=== PATIENT | female | born 1970 | race Two or more races ===

== ENCOUNTER 2017-03-06 16:52 | Emergency (ER) | payer MEDICAID, OTHER ==
[~2017-03-06] VITALS: Ht 167.6 cm; Wt 63.5 kg
[2017-03-06] MEDS ORDERED: LORazepam 2MG/ML-1ML VIAL IV ONE (19:00)
[2017-03-06 19:33] VITALS: BP 136/93
[2017-03-06] MEDS ORDERED: LORazepam 0.5 MG TAB PO ONE (19:45)
== END 2017-03-06 21:11 | disposition home or self-care (01) ==
LOC: EDBD → ER 16:52
DX: F41.9 Anxiety disorder, unspecified (principal); E07.9 Disorder of thyroid, unspecified
CPT/HCPCS: 93005; 94761; 99284; J2060

== ENCOUNTER 2017-03-06 21:19 | Observation (INO) | payer MEDICAID ==
[~2017-03-06] VITALS: Ht 154.9 cm; Wt 65.8 kg
[2017-03-06 23:05] LABS: Basophils # (auto) 0.1 uL; Basophils % (auto) 1.7 % (0.0-2.0); Eosinophils # (auto) 0 uL; Eosinophils % (auto) 0.3 % (0.0-7.0); Hemoglobin 13.6 g/dL (12.2-16.2); Lymphocytes # (auto) 1.6 uL; Lymphocytes % (auto) 21.4 % (10.0-50.0); Mean Corpuscular Hgb Conc. 32.5 g/dL (32.0-36.0); Mean Corpuscular Volume 86.1 fL (80.0-100.0); Mean Platelet Volume 9.5 fL (7.4-10.4); Monocytes # (auto) 0.4 uL; Monocytes % (auto) 5.2 % (0.0-12.0); Neutrophils # (auto) 5.4 uL; Neutrophils % (auto) 71.4 % (37.0-80.0); Platelet Count (auto) 88 10^3/uL (140-450); Red Cell Distribution Width 16.1 % (11.6-16.0); White Blood Cell 7.5 10^3/uL (4.4-10.8)
[2017-03-06 23:40] LABS: Albumin 4.1 g/dL (3.4-5.0); Anion Gap 10 (5-15); Aspartate Aminotransferase 45 U/L (15-37); BUN/Creatinine Ratio 14.7; Blood Urea Nitrogen 10 mg/dL (7-18); Calcium 8.6 mg/dL (8.5-10.1); Carbon Dioxide 21 mmol/L (21-32); Chloride 104 mmol/L (98-107); GFR African American 121 mL/min; GFR Non-African American 100 mL/min; Glucose 110 mg/dL (74-106); Magnesium 2.4 mg/dL (1.6-2.6); Potassium 5.3 mmol/L (3.5-5.1); Sodium 135 mmol/L (136-145)
[2017-03-06 23:45] LABS: Alkaline Phosphatase 94 U/L (45-117); Bilirubin, Total 1.5 mg/dL (0.2-1.0); Total Protein 8.5 g/dL (6.4-8.2)
[2017-03-07] MEDS ORDERED: ALBUTEROL SULF 2.5 MG/0.5ML(0.5%) NEB SOLN NEB STA (00:07)
[2017-03-07] MEDS ORDERED: SODIUM CHLORIDE 0.9% 1,000 ML IV ONE (00:09)
[2017-03-07] MEDS ORDERED: CALCIUM GLUC 4.65 MEQ/10ML 4.65 MEQ in SODIUM CHL 0.9% 50 ML IV ONE (00:15)
[2017-03-07] MEDS ORDERED: InsuLIN REG 1unit/0.01ml Soln (100units/ml) IV ONE (00:15)
[2017-03-07] MEDS ORDERED: SODIUM POLYSTYRENE SULF 15GM/60ML SUSP PO ONE (00:15)
[2017-03-07] MEDS ORDERED: DEXTROSE (50%) 50ML SYRG IV ONE (00:15)
[2017-03-07] MEDS ORDERED: SODIUM BICARBONATE 8.4% INJ 50ML SYRINGE IV ONE (00:15)
[2017-03-07] MEDS ORDERED: LORazepam 2MG/ML-1ML VIAL IV ONE (00:30)
[2017-03-07] MEDS ORDERED: CALCIUM GLUC 4.65 MEQ/10ML IV ONE (00:33)
[2017-03-07 04:22] VITALS: BP 112/62
== END 2017-03-07 04:56 | disposition home or self-care (01) | DRG 756 ==
LOC: EDBD 21:21 → ER 21:21 → OVERFLOW 03-07 00:29 → ER 03-07 04:56
PROVIDERS: ADMIT Emergency Medicine; ATTEND Emergency Medicine
DX: F41.9 Anxiety disorder, unspecified (principal); E87.5 Hyperkalemia; K80.20 Calculus of gallbladder without cholecystitis without obstruction; Z82.49 Family history of ischemic heart disease and other diseases of the circulatory system; Z83.3 Family history of diabetes mellitus
CPT/HCPCS: 36415; 70450; 71010; 76705; 80053; 82962; 83735; 84132; 84443; 84484; 85025; 94644; 96365; 96375; 99285; G0378; J0610; J1815; J2060; J7042

== ENCOUNTER 2017-08-05 23:57 | Emergency (ER) | payer MEDICAID ==
[~2017-08-05] VITALS: Ht 165.1 cm; Wt 63.5 kg
[2017-08-05] MEDS ORDERED: HALOPERIDOL LACTATE 5 MG/ML INJ VIAL ONE (23:58)
[2017-08-05] MEDS ORDERED: LORazepam 2MG/ML-1ML VIAL ONE (23:58)
[2017-08-05] MEDS ORDERED: diphenhdrAMINE HCL 50 MG/1 ML VL ONE (23:58)
[2017-08-06] MEDS ORDERED: diphenhdrAMINE HCL 50 MG/1 ML VL IV ONE (00:30)
[2017-08-06] MEDS ORDERED: HALOPERIDOL LACTATE 5 MG/ML INJ VIAL IM ONE (00:30)
[2017-08-06] MEDS ORDERED: LORazepam 2MG/ML-1ML VIAL IV ONE (00:30)
[2017-08-06 00:46] LABS: Urine Bilirubin Negative (Negative); Urine Blood 1+ /uL (Negative); Urine Color Yellow (Yellow); Urine Glucose Normal (Normal); Urine Hyaline Cast FEW /lpf (0 - 2); Urine Ketone 3+ (Negative); Urine Mucus FEW (None Seen); Urine Nitrite Negative (Negative); Urine RBC 1 /hpf (0 - 4)
[2017-08-06 00:55] LABS: Basophils # (auto) 0 uL; Basophils % (auto) 0.3 % (0.0-2.0); Eosinophils # (auto) 0 uL; Eosinophils % (auto) 0.1 % (0.0-7.0); Hematocrit 36.4 % (36.0-46.0); Hemoglobin 12.1 g/dL (12.2-16.2); Lymphocytes % (auto) 8.3 % (10.0-50.0); Mean Corpuscular Hemoglobin 28.4 pg (28.0-32.0); Mean Corpuscular Hgb Conc. 33.2 g/dL (32.0-36.0); Mean Corpuscular Volume 85.6 fL (80.0-100.0); Mean Platelet Volume 8.3 fL (6.9-10.8); Monocytes % (auto) 8.1 % (0.0-12.0); Neutrophils # (auto) 9.9 uL; Neutrophils % (auto) 83.2 % (37.0-80.0); Nucleated Red Blood Cells % 0.1 %; Platelet Count (auto) 277 10^3/uL (140-450); Red Cell Distribution Width 15.5 % (11.8-14.3); White Blood Cell 11.8 10^3/uL (4.4-10.8)
[2017-08-06 01:16] LABS: BUN/Creatinine Ratio 16.3; Calcium 8.6 mg/dL (8.5-10.1); Potassium 3.1 mmol/L (3.5-5.1)
[2017-08-06 01:19] LABS: Bilirubin, Total 1.1 mg/dL (0.2-1.0); Total Protein 7.9 g/dL (6.4-8.2)
[2017-08-06 01:21] LABS: Lactic Acid w/Reflex 3.8 mmol/L (0.4-2.0)
[2017-08-06 01:27] LABS: REFLEX LACTIC ACID YES OR NO YES
[2017-08-06] MEDS ORDERED: SODIUM CHLORIDE 0.9% 1,000 ML IV ONE (03:00)
[2017-08-06 05:20] VITALS: BP 96/55
== END 2017-08-06 05:52 | disposition home or self-care (01) ==
LOC: ER 08-06 00:02
DX: G92 Toxic encephalopathy (principal); R41.82 Altered mental status, unspecified; F19.10 Other psychoactive substance abuse, uncomplicated; E07.9 Disorder of thyroid, unspecified
CPT/HCPCS: 36415; 80053; 80307; 81001; 81025; 83605; 85025; 93005; 96361; 96372; 96374; 96375; 99285; J1200; J1630; J2060; J7030

== ENCOUNTER 2017-12-19 10:48 | Emergency (ER) | payer MEDICAID ==
[~2017-12-19] VITALS: Ht 157.5 cm; Wt 63.0 kg
[2017-12-19 14:55] VITALS: BP 135/76
[2017-12-19] MEDS ORDERED: TETRACAINE HCL 0.5% OPTH(EYE) SOLN 4ML EACHEYE ONE (15:00)
== END 2017-12-19 15:58 | disposition home or self-care (01) ==
LOC: ER 10:48
DX: S05.02XA Injury of conjunctiva and corneal abrasion without foreign body, left eye, initial encounter (principal); S05.01XA Injury of conjunctiva and corneal abrasion without foreign body, right eye, initial encounter; E07.9 Disorder of thyroid, unspecified; X58.XXXA Exposure to other specified factors, initial encounter; Y93.89 Activity, other specified; Y92.89 Other specified places as the place of occurrence of the external cause; Y99.8 Other external cause status

== ENCOUNTER 2019-05-14 11:56 | Emergency (ER) | payer MEDICAID ==
[~2019-05-14] VITALS: Ht 157.5 cm; Wt 65.8 kg
[2019-05-14 13:08] LABS: Basophils # (auto) 0.1 uL; Basophils % (auto) 0.9 % (0.0-2.0); Eosinophils # (auto) 0.1 uL; Hematocrit 37.9 % (36.0-46.0); Hemoglobin 12.7 g/dL (12.2-16.2); Lymphocytes # (auto) 1.7 uL; Lymphocytes % (auto) 27.5 % (10.0-50.0); Mean Corpuscular Hemoglobin 29.8 pg (28.0-32.0); Mean Corpuscular Hgb Conc. 33.5 g/dL (32.0-36.0); Monocytes # (auto) 0.5 uL; Monocytes % (auto) 8.7 % (0.0-12.0); Neutrophils # (auto) 3.7 uL; Neutrophils % (auto) 61.9 % (37.0-80.0); Platelet Count (auto) 319 10^3/uL (140-450); Red Blood Cells 4.26 10^6/uL (4.0-5.20); Red Cell Distribution Width 14.6 % (11.8-14.3); White Blood Cell 6.1 10^3/uL (4.4-10.8)
[2019-05-14 13:29] LABS: Alanine Aminotransferase 22 U/L (13-56); Albumin 3.7 g/dL (3.4-5.0); Anion Gap 9 (5-15); Aspartate Aminotransferase 12 U/L (15-37); BUN/Creatinine Ratio 10.3; Blood Urea Nitrogen 9 mg/dL (7-18); Calcium 8.1 mg/dL (8.5-10.1); Carbon Dioxide 23 mmol/L (21-32); Chloride 108 mmol/L (98-107); GFR African American 90 mL/min; GFR Non-African American 75 mL/min; Glucose 115 mg/dL (74-106); Potassium 3.6 mmol/L (3.5-5.1); Sodium 140 mmol/L (136-145)
[2019-05-14 13:33] LABS: Alkaline Phosphatase 77 U/L (45-117); Bilirubin, Total 0.6 mg/dL (0.2-1.0); Total Protein 7.7 g/dL (6.4-8.2)
[2019-05-14] MEDS ORDERED: SODIUM CHLORIDE 0.9% 1,000 ML IV ONE (13:53)
[2019-05-14] MEDS ORDERED: SODIUM CHLORIDE 0.9% 500 ML IV ONE (13:53)
[2019-05-14] MEDS ORDERED: IOHEXOL 350 MG/ML 100ML IJ ONE (15:22)
[2019-05-14 16:19] LABS: Urine Bacteria FEW /hpf (None Seen); Urine Blood Negative /uL (Negative); Urine Mucus FEW (None Seen); Urine Specific Gravity 1.024 (1.001-1.035); Urine WBC 1 /hpf (0 - 5)
[2019-05-14 17:48] VITALS: BP 109/58
== END 2019-05-14 18:02 | disposition home or self-care (01) ==
LOC: ER 11:56
DX: R07.89 Other chest pain (principal); F31.9 Bipolar disorder, unspecified; F20.9 Schizophrenia, unspecified; F41.9 Anxiety disorder, unspecified; K80.20 Calculus of gallbladder without cholecystitis without obstruction; Z86.39 Personal history of other endocrine, nutritional and metabolic disease
CPT/HCPCS: 36415; 71046; 71275; 80053; 81001; 81025; 83735; 84443; 84484; 85025; 85379; 93005; 99284; J7030; J7040; Q9967

== ENCOUNTER 2020-12-05 19:12 | Inpatient (IN) | payer MEDICAID ==
[~2020-12-05] VITALS: Ht 152.4 cm; Wt 77.4 kg
[2020-12-05] MEDS ORDERED: methylPREDNISolone SOD SUCC 125 MG/2 ML VL IV ONE (19:30)
[2020-12-05] MEDS ORDERED: IPRATROPIUM BROM 0.5 MG/2.5ML INH SOL NEB ONE (19:30)
[2020-12-05] MEDS ORDERED: SODIUM CHLORIDE 0.9% 1,000 ML IV ONE (19:30)
[2020-12-05] MEDS ORDERED: ALBUTEROL SULF 2.5 MG/0.5ML(0.5%) NEB SOLN NEB ONE (19:30)
[2020-12-05 22:56] LABS: Basophils # (auto) 0.1 10 ^3/uL (0-0.2); Eosinophils # (auto) 0.2 10 ^3/uL (0-0.8); Hematocrit 16.4 % (36.0-46.0); Lymphocytes # (auto) 2.5 10 ^3/uL (0.4-5.4); Neutrophils # (auto) 8.7 10 ^3/uL (1.6-8.6); Red Blood Cells 1.97 10^6/uL (4.0-5.20)
[2020-12-05 22:58] LABS: Basophils % (auto) 0.5 % (0.0-2.0); Eosinophils % (auto) 1.3 % (0.0-7.0); Lymphocytes % (auto) 20.3 % (10.0-50.0); Mean Corpuscular Hemoglobin 25.4 pg (28.0-32.0); Mean Corpuscular Hgb Conc. 30.4 g/dL (32.0-36.0); Mean Corpuscular Volume 83.7 fL (80.0-100.0); Neutrophils % (auto) 69.9 % (37.0-80.0); Nucleated Red Blood Cells % 1.7 %; Platelet Count (auto) 281 10^3/uL (140-450); White Blood Cell 12.5 10^3/uL (4.4-10.8)
[2020-12-05 23:06] LABS: Red Cell Distribution Width 21.3 % (11.8-14.3)
[2020-12-05 23:25] LABS: Albumin 3.3 g/dL (3.4-5.0); BUN/Creatinine Ratio 16.1; Potassium 3.7 mmol/L (3.5-5.1)
[2020-12-05 23:27] LABS: Bilirubin, Total 0.3 mg/dL (0.2-1.0); Total Protein 6.9 g/dL (6.4-8.2)
[2020-12-06] VITALS (8 sets, daily range): BP systolic 110–139; BP diastolic 55–75
[2020-12-06 00:47] LABS: INR 0.95 (0.9-1.15)
[2020-12-06 00:48] LABS: Partial Thromboplastin Time < 20.0 sec (23.0-31.2)
[2020-12-06 03:06] LABS: Urine Bacteria NONE SEEN /hpf (None Seen); Urine Blood 2+ /uL (Negative); Urine Mucus FEW (None Seen); Urine Specific Gravity 1.027 (1.001-1.035); Urine WBC 3 /hpf (0 - 5)
[2020-12-06] MEDS ORDERED: NITROGLYCERIN 0.4 MG SL TAB SL PRN (06:15)
[2020-12-06] MEDS ORDERED: ACETAMINOPHEN 325 MG TAB PO PRN (06:15)
[2020-12-06] MEDS ORDERED: ONDANSETRON HCL 4 MG/2 ML VIAL IV PRN (06:15)
[2020-12-06] MEDS ORDERED: MORPHINE SULF INJ 2 MG/ML SYRINGE 1ML IV PRN ×2 (06:15)
[2020-12-06 14:40] LABS: Basophils # (auto) 0.1 10 ^3/uL (0-0.2); Basophils % (auto) 0.5 % (0.0-2.0); Eosinophils # (auto) 0.1 10 ^3/uL (0-0.8); Eosinophils % (auto) 0.8 % (0.0-7.0); Hematocrit 26.5 % (36.0-46.0); Hemoglobin 8.6 g/dL (12.2-16.2); Lymphocytes # (auto) 2.6 10 ^3/uL (0.4-5.4); Lymphocytes % (auto) 20.7 % (10.0-50.0); Mean Corpuscular Hemoglobin 27.6 pg (28.0-32.0); Mean Corpuscular Hgb Conc. 32.4 g/dL (32.0-36.0); Mean Corpuscular Volume 85.3 fL (80.0-100.0); Monocytes # (auto) 0.8 10 ^3/uL (0-1.3); Monocytes % (auto) 6.3 % (0.0-12.0); Neutrophils % (auto) 71.7 % (37.0-80.0); Nucleated Red Blood Cells % 0.2 %; Platelet Count (auto) 246 10^3/uL (140-450); Red Blood Cells 3.11 10^6/uL (4.0-5.20); Red Cell Distribution Width 17.2 % (11.8-14.3); White Blood Cell 12.5 10^3/uL (4.4-10.8)
[2020-12-06 14:59] LABS: BUN/Creatinine Ratio 9.7; Potassium 3.4 mmol/L (3.5-5.1)
[2020-12-07 01:15] VITALS: BP 135/69
[2020-12-07 05:50] VITALS: BP 135/69
[2020-12-07 08:00] VITALS: BP 123/78
[2020-12-07 12:49] LABS: Hematocrit 28.6 % (36.0-46.0); Hemoglobin 9.4 g/dL (12.2-16.2); Mean Corpuscular Hemoglobin 28.2 pg (28.0-32.0); Mean Corpuscular Volume 85.7 fL (80.0-100.0); Platelet Count (auto) 228 10^3/uL (140-450); Red Blood Cells 3.34 10^6/uL (4.0-5.20); Red Cell Distribution Width 17.5 % (11.8-14.3); White Blood Cell 10.3 10^3/uL (4.4-10.8)
[2020-12-07 12:58] LABS: Band Neutrophils % (manual) 0; Basophils % (manual) 0 (0.0-2.0); Blast Cells 0; Metamyelocytes % 0; Myelocytes % 0; Promyelocytes % 0; Reactive Lymphocytes 0
[2020-12-07 13:17] LABS: Calcium 8.5 mg/dL (8.5-10.1); Potassium 3.7 mmol/L (3.5-5.1)
[2020-12-07 14:18] LABS: Eosinophils % (manual) 1 (0-7); Lymphocytes % (manual) 17 (10.0-50.0); Monocytes % (manual) 8 (0-12)
[2020-12-07 16:00] VITALS: BP 115/65
[2020-12-07 18:33] VITALS: BP 123/78
== END 2020-12-07 21:35 | disposition home or self-care (01) | DRG 532 ==
LOC: EDBD 19:12 → ER 19:12 → TELE 19:13 → TELE-EAST 12-06 23:44
PROVIDERS: ADMIT Internal Medicine; ATTEND Internal Medicine
PROC: 30233N1 Transfusion of Nonautologous Red Blood Cells into Peripheral Vein, Percutaneous Approach (ICD-10-PCS; principal; 2020-12-06)
DX: N93.9 Abnormal uterine and vaginal bleeding, unspecified (principal); U07.1 COVID-19; J12.82 Pneumonia due to coronavirus disease 2019; D25.9 Leiomyoma of uterus, unspecified; E11.9 Type 2 diabetes mellitus without complications; E66.9 Obesity, unspecified; E78.5 Hyperlipidemia, unspecified; I10 Essential (primary) hypertension; J45.909 Unspecified asthma, uncomplicated; N83.292 Other ovarian cyst, left side; N92.0 Excessive and frequent menstruation with regular cycle; R93.89 Abnormal findings on diagnostic imaging of other specified body structures; Z68.33 Body mass index [BMI] 33.0-33.9, adult; Z83.3 Family history of diabetes mellitus; Z98.891 History of uterine scar from previous surgery; Z88.8 Allergy status to other drugs, medicaments and biological substances; D50.0 Iron deficiency anemia secondary to blood loss (chronic)
CPT/HCPCS: 36415; 71045; 76856; 80048; 80053; 81001; 81025; 85007; 85025; 85027; 85610; 85730; 86850; 86900; 86901; 86920; 87426; G0378

== ENCOUNTER 2022-01-08 12:27 | Emergency (ER) | payer MEDICAID ==
[~2022-01-08] VITALS: Ht 157.5 cm; Wt 67.1 kg
[2022-01-08] MEDS ORDERED: SODIUM CHLORIDE 0.9% 1,000 ML IV ONE (13:00)
[2022-01-08 13:54] LABS: Basophils # (auto) 0 10 ^3/uL (0-0.2); Basophils % (auto) 0.4 % (0.0-2.0); Eosinophils # (auto) 0.1 10 ^3/uL (0-0.8); Eosinophils % (auto) 0.6 % (0.0-7.0); Hematocrit 30.1 % (36.0-46.0); Hemoglobin 9.4 g/dL (12.2-16.2); Lymphocytes % (auto) 23.6 % (10.0-50.0); Mean Corpuscular Hemoglobin 23.9 pg (28.0-32.0); Mean Corpuscular Hgb Conc. 31.3 g/dL (32.0-36.0); Mean Corpuscular Volume 76.6 fL (80.0-100.0); Monocytes # (auto) 0.6 10 ^3/uL (0-1.3); Monocytes % (auto) 6.4 % (0.0-12.0); Neutrophils # (auto) 5.9 10 ^3/uL (1.6-8.6); Red Blood Cells 3.93 10^6/uL (4.0-5.20); Red Cell Distribution Width 22.9 % (11.8-14.3); White Blood Cell 8.6 10^3/uL (4.4-10.8)
[2022-01-08 14:07] LABS: Calcium 8.8 mg/dL (8.5-10.1); Potassium 3.5 mmol/L (3.5-5.1)
[2022-01-08 14:12] LABS: BUN/Creatinine Ratio 9.6; Bilirubin, Total 0.7 mg/dL (0.2-1.0); Total Protein 7.9 g/dL (6.4-8.2)
[2022-01-08 14:14] LABS: INR 1.05 (0.9-1.15)
[2022-01-08] MEDS ORDERED: IOHEXOL 300 MG/ML 100ML BOTTLE IJ ONE (14:22)
[2022-01-08] MEDS ORDERED: PERCOT PO (17:38)
[2022-01-08] MEDS ORDERED: NITR-87 PO (17:38)
[2022-01-08 18:00] VITALS: BP 128/71
== END 2022-01-08 19:12 | disposition home or self-care (01) ==
LOC: ER 12:27
DX: N93.8 Other specified abnormal uterine and vaginal bleeding (principal); D21.9 Benign neoplasm of connective and other soft tissue, unspecified; E11.9 Type 2 diabetes mellitus without complications; E78.5 Hyperlipidemia, unspecified; I10 Essential (primary) hypertension; Z88.1 Allergy status to other antibiotic agents; Z88.8 Allergy status to other drugs, medicaments and biological substances
CPT/HCPCS: 36415; 74177; 76856; 80053; 84484; 84702; 85025; 85610; 86850; 86900; 86901; 96360; 99285; J7030; Q9967

== ENCOUNTER 2023-06-13 12:40 | Inpatient (IN) | payer MEDICAID ==
[~2023-06-13] VITALS: Ht 152.4 cm; Wt 76.1 kg
[~2023-06-13 12:40] MED LIST: NITR-87 PO; PERCOT PO
[2023-06-13 13:38] LABS: Basophils # (auto) 0 10 ^3/uL (0-0.2); Basophils % (auto) 0.2 % (0.0-2.0); Eosinophils # (auto) 0 10 ^3/uL (0-0.8); Hematocrit 43.4 % (36.0-46.0); Hemoglobin 14.5 g/dL (12.2-16.2); Lymphocytes # (auto) 1.6 10 ^3/uL (0.4-5.4); Lymphocytes % (auto) 10.4 % (10.0-50.0); Mean Corpuscular Hemoglobin 31.3 pg (28.0-32.0); Mean Corpuscular Hgb Conc. 33.4 g/dL (32.0-36.0); Mean Corpuscular Volume 93.7 fL (80.0-100.0); Monocytes # (auto) 0.6 10 ^3/uL (0-1.3); Monocytes % (auto) 3.9 % (0.0-12.0); Neutrophils # (auto) 13.5 10 ^3/uL (1.6-8.6); Neutrophils % (auto) 85.5 % (37.0-80.0); Nucleated Red Blood Cells % 0.1 %; Red Blood Cells 4.63 10^6/uL (4.0-5.20); Red Cell Distribution Width 13.7 % (11.8-14.3); White Blood Cell 15.8 10^3/uL (4.4-10.8)
[2023-06-13 14:01] LABS: Albumin 4.5 g/dL (3.4-5.0); Calcium 8.9 mg/dL (8.5-10.1)
[2023-06-13 14:04] LABS: BUN/Creatinine Ratio 5.6 (10.0-20.0); Bilirubin, Total 0.9 mg/dL (0.2-1.0); Total Protein 8.3 g/dL (6.4-8.2)
[2023-06-13] MEDS ORDERED: cefTRIAXone 1GM/50ML D5W 50 ML IV ONE (16:15)
[2023-06-13] MEDS ORDERED: metroNIDAZOLE 500MG/100ML 100 ML IV ONE (16:15)
[2023-06-13 17:07] LABS: Lactic Acid w/Reflex 2.8 mmol/L (0.4-2.0)
[2023-06-13 18:28] VITALS: PULSE 92; RESP 22; O2SAT 100
[2023-06-13] MEDS ORDERED: ONDANSETRON HCL 4 MG/2 ML VIAL IV PRN (19:15)
[2023-06-13] MEDS ORDERED: HYDROmorphone HCL 2 MG/ML VL/or syr IV ONE (19:15)
[2023-06-13] MEDS ORDERED: ONDANSETRON HCL 4 MG/2 ML VIAL IV ONE (19:15)
[2023-06-13] MEDS ORDERED: ACETAMINOPHEN 325 MG TAB PO PRN (19:30)
[2023-06-13] MEDS ORDERED: hydrALAZINE HCL 20 MG/ML VL IV PRN (19:30)
[2023-06-13 19:45] VITALS: PULSE 88; RESP 20; O2SAT 100
[2023-06-13] MEDS: SODIUM CHLORIDE 0.9% 1,000 ML IV SCH (20:11)
[2023-06-13 22:27] VITALS: BP 149/73; PULSE 98; TEMP 98.3; O2SAT 96
[2023-06-13] MEDS: HYDROmorphone HCL 2 MG/ML VL/or syr IV PRN (22:40)
[2023-06-14] MEDS ORDERED: SERT-206 PO (00:36)
[2023-06-14] MEDS: SODIUM CHLORIDE 0.9% 1,000 ML IV SCH ×2 (03:00→16:45)
[2023-06-14] MEDS: HYDROmorphone HCL 2 MG/ML VL/or syr IV PRN ×2 (03:57→20:45)
[2023-06-14 04:33] LABS: Urine Bacteria NONE SEEN /hpf (None Seen); Urine Blood 3+ /uL (Negative); Urine Clarity Clear (Clear); Urine Color Yellow (Yellow); Urine Mucus FEW (None Seen); Urine Protein, UAD 1+ (Negative); Urine Specific Gravity 1.027 (1.001-1.035); Urine Urobilinogen Normal (Negative); Urine WBC 2 /hpf (0 - 5); Urine pH 5.5 (5.0-8.0)
[2023-06-14 05:00] VITALS: BP 134/78; PULSE 106; RESP 20; TEMP 98.5; O2SAT 94
[2023-06-14] MEDS ORDERED: metroNIDAZOLE 500MG/100ML 100 ML IV SCH (06:00)
[2023-06-14 06:28] LABS: Basophils # (auto) 0 10 ^3/uL (0-0.2); Basophils % (auto) 0.3 % (0.0-2.0); Eosinophils # (auto) 0 10 ^3/uL (0-0.8); Eosinophils % (auto) 0.1 % (0.0-7.0); Hematocrit 38.7 % (36.0-46.0); Hemoglobin 12.9 g/dL (12.2-16.2); Lymphocytes # (auto) 1.8 10 ^3/uL (0.4-5.4); Lymphocytes % (auto) 11.9 % (10.0-50.0); Mean Corpuscular Hemoglobin 31.6 pg (28.0-32.0); Mean Corpuscular Hgb Conc. 33.4 g/dL (32.0-36.0); Mean Corpuscular Volume 94.8 fL (80.0-100.0); Monocytes # (auto) 1.2 10 ^3/uL (0-1.3); Neutrophils % (auto) 79.7 % (37.0-80.0); Nucleated Red Blood Cells % 0.1 %; Red Blood Cells 4.09 10^6/uL (4.0-5.20); Red Cell Distribution Width 13.8 % (11.8-14.3); White Blood Cell 15.1 10^3/uL (4.4-10.8)
[2023-06-14 06:41] LABS: Potassium 3.6 mmol/L (3.5-5.1)
[2023-06-14 06:44] LABS: INR 1.02 (0.9-1.15); Partial Thromboplastin Time 25.5 SEC (24.5-34.5); Prothrombin Time 10.7 sec (9.3-11.8)
[2023-06-14 06:49] LABS: Albumin 3.6 g/dL (3.4-5.0); BUN/Creatinine Ratio 5.7 (10.0-20.0); Bilirubin, Total 1.3 mg/dL (0.2-1.0); Calcium 8.4 mg/dL (8.5-10.1); Total Protein 7.2 g/dL (6.4-8.2)
[2023-06-14 08:53] VITALS: BP 138/74; PULSE 111; RESP 15; TEMP 99.1; O2SAT 93
[2023-06-14] MEDS: cefTRIAXone 1GM/50ML D5W 50 ML IV SCH (09:00)
[2023-06-14] MEDS ORDERED: fentaNYL CITRATE 100 MCG/2 ML VL ONE (09:03)
[2023-06-14] MEDS ORDERED: MIDAZOLAM HCL 2MG/2ML 2ml VIAL (1mg/ml) ONE (09:03)
[2023-06-14] MEDS ORDERED: HYDROmorphone HCL 2 MG/ML VL/or syr ONE (09:03)
[2023-06-14] MEDS ORDERED: GLYCOPYRROLATE 0.2 MG/ML 1ML VIAL ONE (09:04)
[2023-06-14] MEDS ORDERED: ONDANSETRON HCL 4 MG/2 ML VIAL ONE (09:04)
[2023-06-14] MEDS ORDERED: PROPOFOL 10 MG/ML 20 ML IV ONE (09:04)
[2023-06-14] MEDS ORDERED: KETOROLAC TROMETH 30 MG/ML 1ML VIAL ONE (09:04)
[2023-06-14] MEDS ORDERED: LIDOCAINE 2% (LOCAL ANESTH.) PF 5ml SDV ONE (09:04)
[2023-06-14] MEDS ORDERED: DexAMETHasone SOD PHOS 10MG/1ML VIAL INJ ONE (09:04)
[2023-06-14] MEDS ORDERED: BUPIVACAINE 0.25% INJ 50ML VIAL ONE (09:43)
[2023-06-14] MEDS ORDERED: LIDOCAINE W/ EPINEPHRINE 2% INJ 20ML VIAL ONE (09:43)
[2023-06-14] MEDS ORDERED: ceFAZolin 1GM/50ML 100 ML IV ONE (09:43)
[2023-06-14] MEDS ORDERED: INSULIN LISPRO (HUMAN) 100 UNITS/ML ML SC ONE (09:45)
[2023-06-14] MEDS ORDERED: PANTOPRAZOLE 40 MG/10 ML VIAL INJ IV SCH (10:00)
[2023-06-14] MEDS ORDERED: DEXTROSE (50%) 50ML SYRG IV PRN ×2 (10:00)
[2023-06-14] MEDS ORDERED: PHENYLEPHRINE HCL 10 MG/ML VL ONE (10:37)
[2023-06-14] MEDS ORDERED: ePHEDrine SULFATE 50 MG/ML AMP ONE (10:37)
[2023-06-14] MEDS ORDERED: ONDANSETRON HCL 4 MG/2 ML VIAL IV PRN ×2 (11:15→11:45)
[2023-06-14 11:20] VITALS: RESP 19; O2SAT 95
[2023-06-14] MEDS ORDERED: ACCU-CHEK COMFORT CURVE STRIP VI SCH (11:30)
[2023-06-14] MEDS ORDERED: InsuLIN REG 1unit/0.01ml Soln (100units/ml) SC SCH ×2 (11:30→22:00)
[2023-06-14] MEDS ORDERED: ACCU-CHEK COMFORT CURVE STRIP VI ONE (11:45)
[2023-06-14] MEDS ORDERED: HYDROmorphone HCL 2 MG/ML VL/or syr IV PRN (11:45)
[2023-06-14] MEDS: InsuLIN REG 1unit/0.01ml Soln (100units/ml) SC SCH ×3 (12:07→17:54)
[2023-06-14] MEDS: ACCU-CHEK COMFORT CURVE STRIP VI SCH ×2 (12:11→17:52)
[2023-06-14 12:28] LABS: Hepatitis A Ab IgM Negative
[2023-06-14 12:29] LABS: Hepatitis B Core IgM Negative; Hepatitis B Surface Antigen Negative (Negative); Hepatitis C Antibody Negative (Negative)
[2023-06-14] MEDS: SOD CHL 0.9%/ KCL 20MEQ 1,000 ML IV SCH (16:44)
[2023-06-14] MEDS: metroNIDAZOLE 500MG/100ML 100 ML IV SCH ×2 (16:45→21:54)
[2023-06-14] MEDS ORDERED: LOSARTAN POTASSIUM 50 MG TAB PO ONE (17:00)
[2023-06-14 17:33] VITALS: BP 114/54; PULSE 107; RESP 16; TEMP 98.6; O2SAT 96
[2023-06-14 20:00] VITALS: PULSE 104
[2023-06-14 22:00] VITALS: BP 93/39; PULSE 96; RESP 16; TEMP 98.2; O2SAT 97
[2023-06-15] VITALS (7 sets, daily range): BP systolic 100–133; BP diastolic 48–68; PULSE 76–103; RESP 14–20; TEMP 97.6–98.9; O2SAT 95–98
[2023-06-15] MEDS: ACCU-CHEK COMFORT CURVE STRIP VI SCH ×4 (00:43→17:41)
[2023-06-15] MEDS: InsuLIN REG 1unit/0.01ml Soln (100units/ml) SC SCH ×4 (00:45→17:54)
[2023-06-15] MEDS: SOD CHL 0.9%/ KCL 20MEQ 1,000 ML IV SCH (05:45)
[2023-06-15] MEDS: metroNIDAZOLE 500MG/100ML 100 ML IV SCH ×3 (06:01→21:21)
[2023-06-15] MEDS: HYDROmorphone HCL 2 MG/ML VL/or syr IV PRN ×4 (06:06→22:25)
[2023-06-15 06:32] LABS: Basophils # (auto) 0 10 ^3/uL (0-0.2); Basophils % (auto) 0.2 % (0.0-2.0); Eosinophils # (auto) 0 10 ^3/uL (0-0.8); Eosinophils % (auto) 0.1 % (0.0-7.0); Hematocrit 31.9 % (36.0-46.0); Hemoglobin 10.7 g/dL (12.2-16.2); Lymphocytes % (auto) 17.6 % (10.0-50.0); Mean Corpuscular Hemoglobin 31.6 pg (28.0-32.0); Mean Corpuscular Hgb Conc. 33.5 g/dL (32.0-36.0); Mean Corpuscular Volume 94.4 fL (80.0-100.0); Monocytes # (auto) 1.1 10 ^3/uL (0-1.3); Monocytes % (auto) 9.5 % (0.0-12.0); Neutrophils # (auto) 8.2 10 ^3/uL (1.6-8.6); Neutrophils % (auto) 72.6 % (37.0-80.0); Red Blood Cells 3.38 10^6/uL (4.0-5.20); Red Cell Distribution Width 13.8 % (11.8-14.3); White Blood Cell 11.3 10^3/uL (4.4-10.8)
[2023-06-15 06:45] LABS: Albumin 2.7 g/dL (3.4-5.0); Calcium 7.9 mg/dL (8.5-10.1); Potassium 3.3 mmol/L (3.5-5.1)
[2023-06-15 06:50] LABS: BUN/Creatinine Ratio 13.3 (10.0-20.0); Bilirubin, Total 0.9 mg/dL (0.2-1.0); Total Protein 6.2 g/dL (6.4-8.2)
[2023-06-15] MEDS ORDERED: POTASSIUM CHL 20 Meq TABLET PO ONE (08:15)
[2023-06-15] MEDS: PANTOPRAZOLE 40 MG/10 ML VIAL INJ IV SCH (09:14)
[2023-06-15] MEDS: cefTRIAXone 1GM/50ML D5W 50 ML IV SCH (09:14)
[2023-06-16] VITALS (7 sets, daily range): BP systolic 117–143; BP diastolic 62–102; PULSE 81–101; RESP 16–18; TEMP 97.8–98.6; O2SAT 94–98
[2023-06-16] MEDS: ACCU-CHEK COMFORT CURVE STRIP VI SCH ×4 (00:45→18:03)
[2023-06-16] MEDS: InsuLIN REG 1unit/0.01ml Soln (100units/ml) SC SCH ×4 (00:49→18:08)
[2023-06-16] MEDS: SOD CHL 0.9%/ KCL 20MEQ 1,000 ML IV SCH (01:45)
[2023-06-16] MEDS: metroNIDAZOLE 500MG/100ML 100 ML IV SCH ×2 (06:56→13:14)
[2023-06-16 07:02] LABS: Basophils # (auto) 0 10 ^3/uL (0-0.2); Basophils % (auto) 0.3 % (0.0-2.0); Eosinophils # (auto) 0.1 10 ^3/uL (0-0.8); Eosinophils % (auto) 0.6 % (0.0-7.0); Hematocrit 33.2 % (36.0-46.0); Hemoglobin 11.1 g/dL (12.2-16.2); Lymphocytes # (auto) 2.4 10 ^3/uL (0.4-5.4); Lymphocytes % (auto) 25.4 % (10.0-50.0); Mean Corpuscular Hemoglobin 31.9 pg (28.0-32.0); Mean Corpuscular Hgb Conc. 33.5 g/dL (32.0-36.0); Mean Corpuscular Volume 95.1 fL (80.0-100.0); Monocytes # (auto) 0.7 10 ^3/uL (0-1.3); Monocytes % (auto) 7.5 % (0.0-12.0); Neutrophils # (auto) 6.2 10 ^3/uL (1.6-8.6); Neutrophils % (auto) 66.2 % (37.0-80.0); Red Blood Cells 3.49 10^6/uL (4.0-5.20); Red Cell Distribution Width 13.9 % (11.8-14.3); White Blood Cell 9.4 10^3/uL (4.4-10.8)
[2023-06-16 07:09] LABS: Potassium 3.5 mmol/L (3.5-5.1)
[2023-06-16 07:18] LABS: Albumin 2.8 g/dL (3.4-5.0); BUN/Creatinine Ratio 17.9 (10.0-20.0); Bilirubin, Total 0.4 mg/dL (0.2-1.0); Calcium 7.8 mg/dL (8.5-10.1); Total Protein 6.2 g/dL (6.4-8.2)
[2023-06-16] MEDS: PANTOPRAZOLE 40 MG/10 ML VIAL INJ IV SCH (08:23)
[2023-06-16] MEDS: cefTRIAXone 1GM/50ML D5W 50 ML IV SCH (08:23)
[2023-06-16] MEDS: HYDROcodone-ACET 5/325MG TAB PO PRN ×3 (08:23→18:03)
[2023-06-16] MEDS ORDERED: OMNIPAQUE 12mg/ml 500ml ORAL SOLUTION PO ONE (09:02)
[2023-06-16] MEDS ORDERED: IOHEXOL 300 MG/ML 100ML BOTTLE IJ ONE (09:02)
[2023-06-16 19:52] LABS: Bilirubin, Direct 0.1 mg/dL (0-0.2); Bilirubin, Total 0.4 mg/dL (0.2-1.0)
[2023-06-16] MEDS: metroNIDAZOLE 500 MG TAB PO SCH (21:21)
[2023-06-17] MEDS: ACCU-CHEK COMFORT CURVE STRIP VI SCH ×3 (00:44→12:01)
[2023-06-17] MEDS: InsuLIN REG 1unit/0.01ml Soln (100units/ml) SC SCH ×3 (00:45→12:03)
[2023-06-17 05:00] VITALS: BP 124/68; PULSE 90; RESP 18; TEMP 98.9; O2SAT 96
[2023-06-17] MEDS: HYDROcodone-ACET 5/325MG TAB PO PRN ×2 (05:46→10:37)
[2023-06-17] MEDS: metroNIDAZOLE 500 MG TAB PO SCH ×2 (05:47→14:00)
[2023-06-17 06:58] LABS: Basophils # (auto) 0 10 ^3/uL (0-0.2); Basophils % (auto) 0.3 % (0.0-2.0); Eosinophils # (auto) 0.1 10 ^3/uL (0-0.8); Eosinophils % (auto) 1.6 % (0.0-7.0); Hematocrit 34.8 % (36.0-46.0); Hemoglobin 11.7 g/dL (12.2-16.2); Lymphocytes # (auto) 1.9 10 ^3/uL (0.4-5.4); Lymphocytes % (auto) 21.2 % (10.0-50.0); Mean Corpuscular Hemoglobin 31.8 pg (28.0-32.0); Mean Corpuscular Hgb Conc. 33.7 g/dL (32.0-36.0); Mean Corpuscular Volume 94.4 fL (80.0-100.0); Monocytes # (auto) 0.7 10 ^3/uL (0-1.3); Monocytes % (auto) 7.6 % (0.0-12.0); Neutrophils # (auto) 6.3 10 ^3/uL (1.6-8.6); Neutrophils % (auto) 69.3 % (37.0-80.0); Nucleated Red Blood Cells % 0.1 %; Red Blood Cells 3.69 10^6/uL (4.0-5.20); Red Cell Distribution Width 13.8 % (11.8-14.3); White Blood Cell 9.2 10^3/uL (4.4-10.8)
[2023-06-17 07:00] LABS: Albumin 2.9 g/dL (3.4-5.0); BUN/Creatinine Ratio 15.9 (10.0-20.0); Calcium 8.4 mg/dL (8.5-10.1); Potassium 3.3 mmol/L (3.5-5.1)
[2023-06-17 07:03] LABS: Bilirubin, Total 0.6 mg/dL (0.2-1.0); Total Protein 6.5 g/dL (6.4-8.2)
[2023-06-17] MEDS ORDERED: POTASSIUM CHL 20 Meq TABLET PO ONE (07:45)
[2023-06-17 08:00] VITALS: BP_SYST 107; BP_SYST 131; BP_DIAS 59; BP_DIAS 60; PULSE 70; PULSE 96; RESP 20; RESP 21; TEMP 97.5; TEMP 98.9; O2SAT 92; O2SAT 98
[2023-06-17] MEDS ORDERED: LEVO500T91 PO (09:36)
[2023-06-17] MEDS ORDERED: EMPA1TAB3 PO (09:36)
[2023-06-17] MEDS ORDERED: MET500T PO (09:36)
[2023-06-17] MEDS: PANTOPRAZOLE 40 MG/10 ML VIAL INJ IV SCH (10:00)
[2023-06-17] MEDS ORDERED: levoFLOXacin 500 MG TAB PO SCH (10:00)
[2023-06-17 12:00] VITALS: BP 129/56; PULSE 87; RESP 20; TEMP 99.2; O2SAT 92
== END 2023-06-17 14:32 | disposition home or self-care (01) | DRG 710 ==
LOC: ER 12:40 → OVERFLOW 19:20 → WEST WING 22:05 → TELE-WESTW 06-14 16:20 → WEST WING 06-16 20:38
PROVIDERS: ADMIT Internal Medicine
PROC: 0FT44ZZ Resection of Gallbladder, Percutaneous Endoscopic Approach (ICD-10-PCS; principal; 2023-06-14 10:10)
DX: A41.9 Sepsis, unspecified organism (principal); K80.62 Calculus of gallbladder and bile duct with acute cholecystitis without obstruction; R16.0 Hepatomegaly, not elsewhere classified; R71.0 Precipitous drop in hematocrit; R65.20 Severe sepsis without septic shock; I16.1 Hypertensive emergency; I10 Essential (primary) hypertension; E66.9 Obesity, unspecified; E11.9 Type 2 diabetes mellitus without complications; F20.9 Schizophrenia, unspecified; F32.A Depression, unspecified; F41.9 Anxiety disorder, unspecified; Z88.8 Allergy status to other drugs, medicaments and biological substances; Z79.84 Long term (current) use of oral hypoglycemic drugs; Z83.3 Family history of diabetes mellitus; Z87.891 Personal history of nicotine dependence; Z90.49 Acquired absence of other specified parts of digestive tract; Z68.31 Body mass index [BMI] 31.0-31.9, adult
CPT/HCPCS: 36415; 71045; 74176; 74177; 76705; 78226; 80053; 80061; 80074; 81001; 82150; 82247; 82248; 82962; 83036; 83605; 83690; 83735; 84443; 84702; 85025; 85610; 85730; 87040; 87070; 87075; 87086; 87205; 93005; 96365; 96367; 96375; C9113; G0378; J0690; J0696; J1100; J1815; J1885; J2001; J2250; J2405; J2704; J3490

== ENCOUNTER → 2023-10-01 | Emergency (ER) | payer MEDICAID ==
[~2023-10-01] VITALS: Ht 160 cm; Wt 73.0 kg
[~2023-10-01] MED LIST changes: +ACETAMINOPHEN 325 MG TAB PO ONE; +ASPirin 81 mg TAB PO ONE; +EMPA1TAB3 PO; +LEVO500T91 PO; +LORazepam 0.5 MG TAB PO ONE; +MET500T PO; -NITR-87 PO; -PERCOT PO; +SERT-206 PO
[2023-10-01 22:26] VITALS: BP 190/91; RESP 20; O2SAT 100
[2023-10-01 22:47] LABS: Basophils # (auto) 0.1 10 ^3/uL (0-0.2); Basophils % (auto) 0.6 % (0.0-2.0); Eosinophils # (auto) 0.1 10 ^3/uL (0-0.8); Eosinophils % (auto) 0.8 % (0.0-7.0); Hemoglobin 15.1 g/dL (12.2-16.2); Lymphocytes # (auto) 3.3 10 ^3/uL (0.4-5.4); Lymphocytes % (auto) 34.7 % (10.0-50.0); Mean Corpuscular Hemoglobin 30.3 pg (28.0-32.0); Mean Corpuscular Hgb Conc. 32.9 g/dL (32.0-36.0); Monocytes # (auto) 0.8 10 ^3/uL (0-1.3); Monocytes % (auto) 8.6 % (0.0-12.0); Neutrophils # (auto) 5.3 10 ^3/uL (1.6-8.6); Neutrophils % (auto) 55.3 % (37.0-80.0); Nucleated Red Blood Cells % 0.1 %; Red Cell Distribution Width 14.7 % (11.8-14.3); White Blood Cell 9.6 10^3/uL (4.4-10.8)
[2023-10-01 23:02] LABS: Alanine Aminotransferase 45 U/L (7-40); Albumin 5.1 g/dL (3.2-4.8); Alkaline Phosphatase 107 U/L (46-116); Anion Gap 10 (5-15); Aspartate Aminotransferase 27 U/L (13-40); Bilirubin, Total 0.7 mg/dL (0.2-1.0); Calcium 9.2 mg/dL (8.5-10.1); Carbon Dioxide 21 mmol/L (20-30); Chloride 105 mmol/L (98-107); Glucose 181 mg/dL (74-106); Potassium 3.7 mmol/L (3.5-5.1); Sodium 136 mmol/L (136-145)
[2023-10-01 23:09] LABS: BUN/Creatinine Ratio 8.5 (10.0-20.0); Blood Urea Nitrogen < 5 mg/dL (9-23)
[2023-10-01 23:19] LABS: Magnesium 2.1 mg/dL (1.6-2.6)
[2023-10-01 23:58] VITALS: PULSE 120
[2023-10-02 01:30] LABS: Urine Bacteria FEW /hpf (None Seen); Urine Blood 3+ /uL (Negative); Urine Clarity Clear (Clear); Urine Color Yellow (Yellow); Urine Protein, UAD 1+ (Negative); Urine Specific Gravity 1.016 (1.001-1.035); Urine Urobilinogen Normal (Negative); Urine WBC 8 /hpf (0 - 5); Urine pH 5.5 (5.0-8.0)
[2023-10-02 01:37] LABS: Amphetamine Screen, Urine Neg (NEGATIVE); Barbiturate Scree,Urine Neg (NEGATIVE); Benzodiazephine Screen, Urine Neg (NEGATIVE); Cannabinoid Screen, Urine Neg (NEGATIVE); Cocaine Screen, Urine Neg (NEGATIVE); Opiate Scree,Urine Neg (NEGATIVE); Phencyclidine Screen, Urine Neg (NEGATIVE)
== END | disposition left against medical advice (07) ==
LOC: ER 21:30
DX: F41.9 Anxiety disorder, unspecified (principal); R00.0 Tachycardia, unspecified; E03.9 Hypothyroidism, unspecified; F20.9 Schizophrenia, unspecified; F31.9 Bipolar disorder, unspecified; R00.2 Palpitations; E78.5 Hyperlipidemia, unspecified; I10 Essential (primary) hypertension; E11.9 Type 2 diabetes mellitus without complications; Z90.49 Acquired absence of other specified parts of digestive tract; Z88.6 Allergy status to analgesic agent; Z79.899 Other long term (current) drug therapy
CPT/HCPCS: 36415; 71045; 80053; 80307; 80320; 81001; 83735; 83880; 84443; 84484; 85025; 85379; 93005

== ENCOUNTER 2024-07-07 12:56 | Inpatient (IN) | payer MEDICAID ==
[~2024-07-07] VITALS: Ht 152.4 cm; Wt 81.1 kg
[2024-07-07] VITALS (7 sets, daily range): BP systolic 137–155; BP diastolic 74–82; PULSE 104–135; RESP 18–23; TEMP 97.4–98.4; O2SAT 96–98
[~2024-07-07 12:56] MED LIST changes: -ACETAMINOPHEN 325 MG TAB PO ONE; -ASPirin 81 mg TAB PO ONE; -LORazepam 0.5 MG TAB PO ONE
[2024-07-07] MEDS: SODIUM CHLORIDE 0.9% 1,000 ML IVB ONE (14:03)
[2024-07-07] MEDS: LORazepam 2MG/ML-1ML VIAL IV ONE ×2 (14:04→17:00)
[2024-07-07 14:41] LABS: Basophils # (auto) 0 10 ^3/uL (0-0.2); Basophils % (auto) 0.3 % (0.0-2.0); Eosinophils # (auto) 0 10 ^3/uL (0-0.8); Eosinophils % (auto) 0.1 % (0.0-7.0); Hemoglobin 7.6 g/dL (12.2-16.2); Monocytes # (auto) 0.7 10 ^3/uL (0-1.3); Neutrophils # (auto) 10.4 10 ^3/uL (1.6-8.6); Red Cell Distribution Width 18.2 % (11.8-14.3)
[2024-07-07 14:44] LABS: Hematocrit 25.3 % (36.0-46.0); Lymphocytes # (auto) 1.6 10 ^3/uL (0.4-5.4); Lymphocytes % (auto) 12.6 % (10.0-50.0); Mean Corpuscular Hemoglobin 21.9 pg (28.0-32.0); Mean Corpuscular Hgb Conc. 29.9 g/dL (32.0-36.0); Mean Corpuscular Volume 73.3 fL (80.0-100.0); Monocytes % (auto) 5.6 % (0.0-12.0); Neutrophils % (auto) 81.4 % (37.0-80.0); Nucleated Red Blood Cells % 0.1 %; Platelet Count (auto) 384 10^3/uL (140-450); Red Blood Cells 3.46 10^6/uL (4.0-5.20); White Blood Cell 12.7 10^3/uL (4.4-10.8)
[2024-07-07 14:55] LABS: INR 1.02 (0.9-1.15); Partial Thromboplastin Time 20.9 SEC (24.5-34.5); Prothrombin Time 10.8 sec (9.3-11.8)
[2024-07-07 15:05] LABS: Alanine Aminotransferase 28 U/L (7-40); Albumin 4.9 g/dL (3.2-4.8); Alkaline Phosphatase 94 U/L (46-116); Anion Gap 10 (5-15); Aspartate Aminotransferase 19 U/L (13-40); BUN/Creatinine Ratio 9.9 (10.0-20.0); Bilirubin, Total 0.9 mg/dL (0.2-1.0); Blood Urea Nitrogen 7 mg/dL (9-23); Calcium 9.4 mg/dL (8.7-10.4); Carbon Dioxide 23 mmol/L (20-30); Chloride 103 mmol/L (98-107); Glucose 243 mg/dL (74-106); Potassium 4.2 mmol/L (3.5-5.1); Sodium 136 mmol/L (136-145); Total Protein 7.3 g/dL (5.7-8.2)
[2024-07-07 16:08] LABS: % Iron Saturation 3.1 % (15-50)
[2024-07-07] MEDS ORDERED: DOCUSATE SOD 100 MG CAP PO PRN (16:45)
[2024-07-07] MEDS ORDERED: DEXTROSE (50%) 50ML SYRG IV PRN (16:45)
[2024-07-07] MEDS ORDERED: NITROGLYCERIN 0.4 MG SL TAB SL PRN (16:45)
[2024-07-07] MEDS ORDERED: MORPHINE SULFATE INJ 2 MG/ml SYRG IV PRN (16:45)
[2024-07-07] MEDS ORDERED: ONDANSETRON HCL 4 MG/2 ML VIAL IV PRN (16:45)
[2024-07-07] MEDS: SODIUM CHLORIDE 0.9% 1,000 ML IV SCH (17:00)
[2024-07-07] MEDS: SODIUM CHLORIDE 0.9% 1,000 ML IV ONE (17:00)
[2024-07-07] MEDS: ACCU-CHEK COMFORT CURVE STRIP VI SCH (17:21)
[2024-07-07] MEDS: InsuLIN REG 1unit/0.01ml Soln (100units/ml) SC SCH ×2 (17:24→21:50)
[2024-07-07 17:37] LABS: Hematocrit 23.6 % (36.0-46.0)
[2024-07-07 20:08] LABS: Urine Bacteria FEW /hpf (None Seen); Urine Blood Negative /uL (Negative); Urine Clarity Clear (Clear); Urine Color Light-Yellow (Yellow); Urine Hyaline Cast FEW /lpf (0 - 2); Urine Mucus FEW (None Seen); Urine Protein, UAD TRACE (Negative); Urine Specific Gravity 1.016 (1.001-1.035); Urine Urobilinogen Normal (Negative); Urine WBC 3 /hpf (0 - 5); Urine pH 6.5 (5.0-9.0)
[2024-07-07] MEDS ORDERED: ATOR10TA PO (23:03)
[2024-07-07] MEDS ORDERED: LOS25T PO (23:03)
[2024-07-07] MEDS ORDERED: GLIP5TAB21 PO (23:03)
[2024-07-08] VITALS (7 sets, daily range): BP systolic 101–123; BP diastolic 46–64; PULSE 80–101; RESP 18–22; TEMP 97.4–98.2; O2SAT 98–100
[2024-07-08 06:42] LABS: Basophils # (auto) 0 10 ^3/uL (0-0.2); Basophils % (auto) 0.5 % (0.0-2.0); Eosinophils # (auto) 0.1 10 ^3/uL (0-0.8); Hemoglobin 7.6 g/dL (12.2-16.2); Monocytes # (auto) 0.7 10 ^3/uL (0-1.3); Monocytes % (auto) 8.8 % (0.0-12.0); Neutrophils # (auto) 4.6 10 ^3/uL (1.6-8.6); Neutrophils % (auto) 61.1 % (37.0-80.0)
[2024-07-08 06:45] LABS: Eosinophils % (auto) 1.2 % (0.0-7.0); Hematocrit 24.5 % (36.0-46.0); Lymphocytes # (auto) 2.2 10 ^3/uL (0.4-5.4); Lymphocytes % (auto) 28.4 % (10.0-50.0); Mean Corpuscular Hemoglobin 21.6 pg (28.0-32.0); Mean Corpuscular Hgb Conc. 30.9 g/dL (32.0-36.0); Mean Corpuscular Volume 69.9 fL (80.0-100.0); Nucleated Red Blood Cells % 0.1 %; Platelet Count (auto) 259 10^3/uL (140-450); White Blood Cell 7.6 10^3/uL (4.4-10.8)
[2024-07-08 06:47] LABS: Red Cell Distribution Width 21.8 % (11.8-14.3)
[2024-07-08 07:00] LABS: Alanine Aminotransferase 14 U/L (7-40); Alkaline Phosphatase 73 U/L (46-116); Anion Gap 3 (5-15); BUN/Creatinine Ratio 8.9 (10.0-20.0); Blood Urea Nitrogen 5 mg/dL (9-23); Calcium 8.4 mg/dL (8.7-10.4); Carbon Dioxide 25 mmol/L (20-30); Chloride 110 mmol/L (98-107); Glucose 152 mg/dL (74-106); Potassium 3.8 mmol/L (3.5-5.1); Sodium 138 mmol/L (136-145)
[2024-07-08 07:01] LABS: Albumin 3.8 g/dL (3.2-4.8); Aspartate Aminotransferase 10 U/L (13-40)
[2024-07-08 07:02] LABS: Bilirubin, Total 0.9 mg/dL (0.2-1.0); Total Protein 5.8 g/dL (5.7-8.2)
[2024-07-08] MEDS ORDERED: ROSU20TA56 PO (12:44)
[2024-07-08] MEDS ORDERED: FERR324T4 PO ×2 (12:44→18:11)
[2024-07-08] MEDS ORDERED: DOCU-265 PO (12:44)
[2024-07-08] MEDS ORDERED: ENAL1TAB48 PO (12:44)
[2024-07-10 10:41] LABS: Follicle Stimulating Hormone 8.08 IU/L (SEE BELOW); Leuteinizing Hormone 2.9 IU/L
[2024-07-10 10:50] LABS: Hepatitis B Surface Antigen Negative (Negative)
[2024-07-10 11:12] LABS: Hepatitis C Antibody Negative (Negative)
== END 2024-07-08 19:30 | disposition home or self-care (01) | DRG 532 ==
LOC: ER 12:56 → TELE 16:43 → TELE-WESTW 21:27
PROVIDERS: ADMIT Nurse Practitioner Family; ATTEND Nurse Practitioner Family
PROC: 30233N1 Transfusion of Nonautologous Red Blood Cells into Peripheral Vein, Percutaneous Approach (ICD-10-PCS; principal; 2024-07-07)
DX: D25.9 Leiomyoma of uterus, unspecified (principal); D62 Acute posthemorrhagic anemia; D72.829 Elevated white blood cell count, unspecified; E11.65 Type 2 diabetes mellitus with hyperglycemia; E78.5 Hyperlipidemia, unspecified; F20.9 Schizophrenia, unspecified; N92.0 Excessive and frequent menstruation with regular cycle; F41.1 Generalized anxiety disorder; I10 Essential (primary) hypertension; F32.A Depression, unspecified; Z79.899 Other long term (current) drug therapy; Z88.8 Allergy status to other drugs, medicaments and biological substances; Z90.49 Acquired absence of other specified parts of digestive tract
CPT/HCPCS: 36415; 76856; 80053; 81001; 82962; 83001; 83002; 83036; 83540; 83550; 84443; 85014; 85018; 85025; 85610; 85730; 86803; 86850; 86900; 86901; 86920; 87340; 93005; 96361; 96374; 99291; G0378; J1815

== ENCOUNTER 2024-07-11 16:39 | Emergency (ER) | payer MEDICAID ==
[~2024-07-11] VITALS: Ht 154.9 cm; Wt 75.0 kg
[~2024-07-11 16:39] MED LIST changes: +ATOR10TA PO; +DOCU-265 PO; +ENAL1TAB48 PO; +FERR324T4 PO; +GLIP5TAB21 PO; -LEVO500T91 PO; +LOS25T PO; +ROSU20TA56 PO
[2024-07-11] MEDS: IPRATROPIUM BROM 0.5 MG/2.5ML INH SOL NEB ONE (20:50)
[2024-07-11] MEDS: ALBUTEROL SULF 2.5 MG/0.5ML(0.5%) NEB SOLN NEB ONE (20:50)
[2024-07-11] MEDS: ALBUTEROL SULF 2.5 MG/0.5ML(0.5%) NEB SOLN ONE (20:50)
[2024-07-11] MEDS: IPRATROPIUM BROM 0.5 MG/2.5ML INH SOL ONE (20:51)
[2024-07-11 21:28] LABS: Eosinophils # (auto) 0 10 ^3/uL (0-0.8); Eosinophils % (auto) 0.1 % (0.0-7.0); Nucleated Red Blood Cells % 0.1 %
[2024-07-11 21:30] LABS: Basophils # (auto) 0 10 ^3/uL (0-0.2); Basophils % (auto) 0.3 % (0.0-2.0); Hemoglobin 10.1 g/dL (12.2-16.2); Lymphocytes # (auto) 3.1 10 ^3/uL (0.4-5.4); Lymphocytes % (auto) 24.4 % (10.0-50.0); Mean Corpuscular Hemoglobin 21.4 pg (28.0-32.0); Mean Corpuscular Hgb Conc. 30.6 g/dL (32.0-36.0); Mean Corpuscular Volume 70.1 fL (80.0-100.0); Monocytes # (auto) 0.9 10 ^3/uL (0-1.3); Monocytes % (auto) 7.1 % (0.0-12.0); Neutrophils # (auto) 8.7 10 ^3/uL (1.6-8.6); Neutrophils % (auto) 68.1 % (37.0-80.0); Platelet Count (auto) 380 10^3/uL (140-450); Red Blood Cells 4.71 10^6/uL (4.0-5.20); White Blood Cell 12.8 10^3/uL (4.4-10.8)
[2024-07-11 21:33] LABS: Red Cell Distribution Width 21.4 % (11.8-14.3)
[2024-07-11 21:45] LABS: Partial Thromboplastin Time 22.2 SEC (24.5-34.5); Prothrombin Time 10.6 sec (9.3-11.8)
[2024-07-11 21:51] LABS: Alanine Aminotransferase 29 U/L (7-40); Albumin 5.1 g/dL (3.2-4.8); Alkaline Phosphatase 102 U/L (46-116); Anion Gap 11 (5-15); Aspartate Aminotransferase 23 U/L (13-40); BUN/Creatinine Ratio 9.2 (10.0-20.0); Blood Urea Nitrogen 6 mg/dL (9-23); Calcium 9.8 mg/dL (8.7-10.4); Carbon Dioxide 19 mmol/L (20-30); Chloride 105 mmol/L (98-107); Glucose 124 mg/dL (74-106); Potassium 3.9 mmol/L (3.5-5.1); Sodium 135 mmol/L (136-145)
[2024-07-11 21:52] LABS: Bilirubin, Total 1.2 mg/dL (0.2-1.0); Total Protein 8.2 g/dL (5.7-8.2)
[2024-07-12] MEDS: LORazepam 2MG/ML-1ML VIAL IM ONE (00:12)
[2024-07-12 00:20] VITALS: PULSE 86; RESP 20; O2SAT 100
[2024-07-12 00:43] VITALS: BP 140/82; PULSE 85; RESP 20; TEMP 98.1; O2SAT 98
== END 2024-07-12 00:43 | disposition home or self-care (01) ==
LOC: ER 16:39
DX: F41.9 Anxiety disorder, unspecified (principal); E11.9 Type 2 diabetes mellitus without complications; E78.5 Hyperlipidemia, unspecified; I10 Essential (primary) hypertension; F20.9 Schizophrenia, unspecified; Z90.49 Acquired absence of other specified parts of digestive tract; Z88.6 Allergy status to analgesic agent; Z88.8 Allergy status to other drugs, medicaments and biological substances; Z91.199 Patient's noncompliance with other medical treatment and regimen due to unspecified reason
CPT/HCPCS: 36415; 71045; 80053; 82962; 83735; 83880; 84484; 85025; 85610; 85730; 86850; 86900; 86901; 93005; 94640; 96372; 99285; J2060